=== PATIENT | female | born 1995 | race Two or more races ===

== ENCOUNTER 2024-01-20 14:40 | Emergency (ER) | payer MEDICAID, OTHER ==
[~2024-01-20] VITALS: Ht 165.1 cm; Wt 71.5 kg
[2024-01-20] MEDS ORDERED: CLIN-203 PO (15:04)
[2024-01-20] MEDS ORDERED: IBUP-1455 PO (15:04)
[2024-01-20] MEDS ORDERED: ACET-1304 PO (15:04)
[2024-01-20] MEDS: CLINDAMYCIN 600MG IV 50 ML IV ONE (15:21)
[2024-01-20] MEDS: KETOROLAC TROMETH 30 MG/ML 1ML VIAL IV ONE (15:21)
[2024-01-20 15:27] VITALS: BP 132/86; PULSE 91; RESP 16; O2SAT 96
== END 2024-01-20 16:16 | disposition home or self-care (01) ==
LOC: ER 14:40
DX: L03.211 Cellulitis of face (principal); K04.7 Periapical abscess without sinus; F17.210 Nicotine dependence, cigarettes, uncomplicated; Z98.890 Other specified postprocedural states; Z79.899 Other long term (current) drug therapy
CPT/HCPCS: 96365; 96375; 99284; J1885; J3490